=== PATIENT | female | born 1950 | race Caucasian/White ===

== ENCOUNTER 2018-10-15 09:59 | Observation (INO) | payer MEDICARE, OTHER ==
[2018-10-08 11:53] LABS: BASOPHILS % (AUTO) 0.2 % (0-1); EOSINOPHILS # (AUTO) 0.1 X10'3 (0-0.9); LYMPHOCYTES # (AUTO) 0.8 X10'3 (1.1-4.8); LYMPHOCYTES % (AUTO) 16.9 % (21-51); MEAN CORPUSCULAR HEMOGLOBIN 28.5 PG (27.0-31.0); MEAN CORPUSCULAR HGB CONC 32.9 % (33.0-36.5); MEAN CORPUSCULAR VOLUME 86.4 FL (78-98); MEAN PLATELET VOLUME 9.7 FL (7.4-10.4); MONOCYTES # (AUTO) 0.3 X10'3 (0-0.9); MONOCYTES % (AUTO) 5.7 % (2-12); NEUTROPHILS # (AUTO) 3.4 X10'3 (1.8-7.7); NEUTROPHILS % (AUTO) 75.2 % (42-75); PRE OP HEMATOCRIT 31.7 % (35.0-45.0); PRE OP PLATELET COUNT 160 X10'3 (140-440); RED BLOOD COUNT 3.67 X10'6 (4.20-5.60); RED CELL DISTRIBUTION WIDTH 13.6 % (11.5-14.5)
[2018-10-08 11:55] LABS: CLARITY,URINE CLEAR (Clear); COLOR,URINE YELLOW (Yellow); GLUCOSE, URINE NEGATIVE (Neg); KETONES,URINE NEGATIVE (Neg); LEUKOCYTE ESTERASE ,URINE SMALL (Neg); NITRITES, URINE NEGATIVE (Neg); OCCULT BLOOD,URINE TRACE-INTACT (Neg); PROTEIN,URINE NEGATIVE (Neg); UROBILINOGEN,URINE 0.2 E.U/dL (0.2-1.0)
[2018-10-08 11:56] LABS: UA COLLECTION TYPE CLN CATCH MIDSTREAM
[2018-10-08 11:59] LABS: PRE OP HEMOGLOBIN 10.4 g/dL (12.0-16.0)
[2018-10-08 12:01] LABS: SQUAMOUS EPITHELIAL CELL,UR FEW /LPF (FEW); TRANSITIONAL EPI CELLS,URINE FEW /HPF
[2018-10-08 12:02] LABS: BACTERIA,URINE FEW /HPF (Neg)
[2018-10-08 12:03] LABS: ALBUMIN 3.7 G/DL (3.4-5.0); ALKALINE PHOSPHATASE 68 IU/L (46-116); BLOOD UREA NITROGEN 45 MG/DL (7-18); BUN/CREATININE RATIO 23.6 (6.6-38.0); CALCIUM 9.2 MG/DL (8.5-10.1); CHLORIDE 104 MMOL/L (99-107); CREATININE 1.91 MG/DL (0.40-0.90); PRE OP ALT 23 U/L (30-65); PRE OP ANION GAP 9 (8-16); PRE OP AST 11 U/L (10-37); PRE OP BILIRUB, TOTAL 0.3 MG/DL (0.0-1.0); PRE OP GLUCOSE 132 MG/DL (70-104); PRE OP POTASSIUM 4.2 MMOL/L (3.4-5.1); PRE OP SODIUM 141 MMOL/L (135-145); TOTAL CARBON DIOXIDE 28.4 MMOL/L (24-32); TOTAL PROTEIN 7.4 G/DL (6.4-8.2); eGFR 26 ML/MIN
[2018-10-08 12:03] LABS: RBC,URINE 0-2 /HPF (0-2)
[~2018-10-15] VITALS: Ht 167.6 cm; Wt 68.2 kg
[2018-10-15] VITALS (35 sets, daily range): BP systolic 105–188; BP diastolic 47–80
[~2018-10-15 09:59] MED LIST: NO HOME MEDS; cefazolin/dext.iso 2gm/100 ML IV ONE; famotidine 20mg tablet PO ONE; normal saline 1000ml 1,000 ML IV SCH
[2018-10-15] MEDS ORDERED: LIDOcaine 1% (10mg/ml) 2ml vial ONE (10:43)
[2018-10-15] MEDS ORDERED: ringers solution, lacted 1,000 ML IV SCH (12:03)
[2018-10-15] MEDS ORDERED: hydrALAZINE 20mg/ml inj. IV PRN (12:05)
[2018-10-15] MEDS ORDERED: morphine 4 MG/ML inj SYRINge IV PRN ×2 (12:05)
[2018-10-15] MEDS ORDERED: labetalol 20mg/4ml (5mg/ml) syringe IV PRN (12:05)
[2018-10-15] MEDS ORDERED: ondansetron/PF 4mg/2ml inj IV PRN ×2 (12:05→16:45)
[2018-10-15] MEDS ORDERED: fentaNYL/PF 50MCG/1 ML 2ML syringe IV PRN (12:05)
[2018-10-15] MEDS ORDERED: methylene blue (5mg/ml) 50mg/10ml ampul IV ONE (12:23)
[2018-10-15] MEDS ORDERED: ROPIVAcaine 0.5% (5mg/ml) 30ml vial ONE (12:24)
[2018-10-15] MEDS ORDERED: dexamethasone sod phosphate 10mg/ml inj ONE (12:42)
[2018-10-15] MEDS ORDERED: sevoflurane 250ml liquid IH ONE (12:42)
[2018-10-15] MEDS ORDERED: propofol inj 20 ML IV ONE (12:48)
[2018-10-15] MEDS ORDERED: fentaNYL/PF 50MCG/1 ML 2ML syringe ONE (12:48)
[2018-10-15] MEDS ORDERED: LIDOcaine 2% (20mg/ml) 5ml vial ONE (12:48)
[2018-10-15] MEDS ORDERED: midazolam 2 mg/2 ml injection ONE (12:48)
[2018-10-15] MEDS ORDERED: ondansetron/PF 4mg/2ml inj ONE (13:04)
[2018-10-15] MEDS ORDERED: naloxone 0.4 mg/ml inj ONE (13:37)
[2018-10-15] MEDS: fentaNYL/PF 50MCG/1 ML 2ML syringe IV PRN ×2 (14:05→14:13)
[2018-10-15] MEDS ORDERED: morphine 10mg/ml inj. IV PRN (14:07)
[2018-10-15] MEDS: morphine 10mg/ml inj. IV PRN ×2 (14:35→14:47)
[2018-10-15] MEDS ORDERED: traMADol 50MG tablet PO PRN (16:45)
[2018-10-15] MEDS ORDERED: proCHLORperazine 10 MG/2 ml inj IV ONE (17:45)
[2018-10-15] MEDS ORDERED: scopolamine 1.5mg patch.TD72 TD ONE (18:25)
[2018-10-16 00:01] VITALS: BP 127/44
[2018-10-16] MEDS ORDERED: normal saline 500ml IV soln 500 ML IV SCH (01:01)
[2018-10-16 04:00] VITALS: BP 140/38
[2018-10-16 07:00] VITALS: BP 140/54
[2018-10-16 07:10] VITALS: BP 139/31
[2018-10-16 11:00] VITALS: BP 135/53
[2018-10-16] MEDS ORDERED: TRAM50TA2 PO (13:06)
[2018-10-16 13:43] VITALS: BP 119/39
== END 2018-10-16 14:35 | disposition home or self-care (01) ==
LOC: PAS 09:59 → SUR 3N 16:45 → PAS 16:45 → SUR 3N 19:15
PROVIDERS: ADMIT Surgery; ATTEND Surgery
DX: K64.8 Other hemorrhoids (principal); K64.4 Residual hemorrhoidal skin tags; N18.4 Chronic kidney disease, stage 4 (severe); Z86.73 Personal history of transient ischemic attack (TIA), and cerebral infarction without residual deficits; Z88.8 Allergy status to other drugs, medicaments and biological substances
CPT/HCPCS: 36415; 46250; 46947; 80053; 81001; 82948; 85025; 87088; 93005; 96374; 96375; A6224; A6449; G0378; J0690; J0780; J1100; J2001; J2250; J2270; J2310; J2405; J2704; J3010; J3490; J7030; 88304; 88311; A7000; J2795; J7120